=== PATIENT | male | born 1970 | race Caucasian/White ===

== ENCOUNTER 2018-07-12 13:46 | Outpatient (REF) | payer MEDICARE, MEDICAID, SELFPAY ==
[2018-07-12 21:58] LABS: HCT 42.3 % (40.0-50.0); HGB 14.2 g/dL (13.5-17.5); Mean Corp. HGB Concentration 33.6 g/dL (32.0-36.0); Mean Corpuscular Hemoglobin 30.4 pg (27.0-33.0); Mean Corpuscular Volume 90.6 fL (80-95); Platelet Count 352 x1000/uL (130-400); RBC 4.67 m/cumm (4.50-6.00); RBC Distribution Width 12.4 % (11.8-14.1); White Blood Cell Count 7.75 k/cumm (4.4-10.8)
[2018-07-12 22:21] LABS: ALT 29 U/L (12-78); AST 22 U/L (15-37); Albumin 3.8 g/dL (3.4-5.0); Alkaline Phosphatase 75 U/L (46-116); BUN 18 mg/dL (7-18); Bilirubin, Total 0.5 mg/dL (0.2-1.0); CREATININE 1.38 mg/dL (0.70-1.30); Calcium 9.9 mg/dL (8.5-10.1); Chloride 104 mmol/L (98-107); Estimated GFR 54.54 (mL/min/1.73m2); Glucose 121 mg/dL (70-100); Potassium 4.1 mmol/L (3.5-5.1); Sodium 140 mmol/L (136-145); Total Protein 7.4 g/dL (6.4-8.2)
== END 2018-07-12 14:06 ==
LOC: NCHCN 13:46
PROVIDERS: PCP Nurse Practitioner Family; Visit Provider Specialist/Technologist Athletic Trainer
DX: E03.9 Hypothyroidism, unspecified (principal); Z79.899 Other long term (current) drug therapy
CPT/HCPCS: 80053; 85027; 84443

== ENCOUNTER 2019-06-10 10:54 | Outpatient (CLI) | payer MEDICARE, MEDICAID, SELFPAY ==
[2019-06-10 12:13] LABS: Lithium 0.56 mmol/L (0.60-1.20)
[2019-06-10 13:00] LABS: Anion Gap 8.1 mmol/L (3-11); BUN 23 mg/dL (7-18); CO2 26.9 mmol/L (21.0-32.0); CREATININE 1.49 mg/dL (0.70-1.30); Calcium 9.8 mg/dL (8.5-10.1); Chloride 104 mmol/L (98-107); Estimated GFR 49.72 (mL/min/1.73m2); Glucose 106 mg/dL (70-100); Potassium 4.2 mmol/L (3.5-5.1); Sodium 139 mmol/L (136-145); TSH 0.58 uIU/mL (0.36-3.74)
== END 2019-06-10 11:14 ==
PROVIDERS: PCP Specialist/Technologist Athletic Trainer
DX: F71 Moderate intellectual disabilities (principal); Z51.81 Encounter for therapeutic drug level monitoring; Z79.899 Other long term (current) drug therapy
CPT/HCPCS: 36415; 80048; 80178; 84443

== ENCOUNTER 2019-07-15 09:33 | Outpatient (REF) | payer MEDICARE, MEDICAID, SELFPAY ==
[2019-07-15 19:18] LABS: HCT 41.5 % (40.0-50.0); Mean Corp. HGB Concentration 33.7 g/dL (32.0-36.0); Mean Corpuscular Hemoglobin 31.1 pg (27.0-33.0); Mean Corpuscular Volume 92.2 fL (80-95); Mean Platelet Volume 9.5 fL (8.0-11.0); Platelet Count 378 x1000/uL (130-400); RBC Distribution Width 12.4 % (11.8-14.1); White Blood Cell Count 7.47 k/cumm (4.4-10.8)
== END 2019-07-15 09:53 ==
LOC: NCHCN 09:33
PROVIDERS: PCP Specialist/Technologist Athletic Trainer; Visit Provider Specialist/Technologist Athletic Trainer
DX: K62.5 Hemorrhage of anus and rectum (principal)
CPT/HCPCS: 85027

== ENCOUNTER 2020-10-04 14:47 | Outpatient (REF) | payer MEDICARE, MEDICAID, SELFPAY ==
[2020-10-04 16:13] LABS: HCT 43.8 % (40.0-50.0); HGB 14.6 g/dL (13.5-17.5); MCH 30.4 pg (27.0-33.0); MCHC 33.3 % (32.0-36.0); MCV 91.1 fL (80-95); MPV 10.3 fL (8.0-11.0); Platelet Count 321 10^3/uL (130-400); RBC 4.81 10^6/uL (4.36-5.78); RDW 12.3 % (11.8-14.1); RDW-SD 41.1 fL; WBC 7.09 10^3/uL (4.4-10.8)
[2020-10-04 16:38] LABS: Lithium 0.6 mmol/l (0.6-1.2)
[2020-10-04 16:44] LABS: ALT 31 U/L (16-63); AST 20 U/L (15-37); Albumin 3.7 g/dL (3.4-5.0); Alkaline Phosphatase 86 U/L (46-116); Anion Gap 9.9 mmol/L (3-11); BUN 14 mg/dL (7-18); Bilirubin, Total 0.3 mg/dL (0.2-1.0); CO2 26.1 mmol/L (21.0-32.0); CREATININE 1.5 mg/dL (0.70-1.30); Calcium 9.6 mg/dL (8.5-10.1); Calculated LDL 139 mg/dL (<100); Chloride 103 mmol/L (98-107); Cholesterol 210 mg/dL (<200); Estimated GFR 49.15 (mL/min/1.73m2); Glucose 93 mg/dL (74-106); HDL Cholesterol 55 mg/dL (40-60); Potassium 4.1 mmol/L (3.5-5.1); Sodium 139 mmol/L (136-145); TSH 0.15 uIU/mL (0.36-3.74); Total Protein 7.1 g/dL (6.4-8.2); Triglyceride 80 mg/dL (<150)
== END 2020-10-04 14:48 | disposition home or self-care (01) ==
LOC: NCHCN 14:47
PROVIDERS: PCP Nurse Practitioner Family; Visit Provider Nurse Practitioner Family
DX: E03.9 Hypothyroidism, unspecified (principal); D72.829 Elevated white blood cell count, unspecified; Z51.81 Encounter for therapeutic drug level monitoring; Z79.899 Other long term (current) drug therapy
CPT/HCPCS: 80053; 80061; 85027; 80178; 84443

== ENCOUNTER 2021-10-10 19:07 | Outpatient (REF) | payer MEDICARE, MEDICAID, SELFPAY ==
[2021-10-10 21:21] LABS: Lithium 0.6 mmol/l (0.6-1.2)
[2021-10-10 21:36] LABS: Anion Gap 10.6 mmol/L (3-11); BUN 22 mg/dL (7-18); CO2 26.4 mmol/L (21.0-32.0); CREATININE 1.7 mg/dL (0.70-1.30); Chloride 100 mmol/L (98-107); Estimated GFR 42.37 (mL/min/1.73m2); Glucose 114 mg/dL (74-106); Potassium 4.1 mmol/L (3.5-5.1); Sodium 137 mmol/L (136-145); TSH 1.85 uIU/mL (0.36-3.74)
== END 2021-10-10 19:08 | disposition home or self-care (01) ==
LOC: NCHCN 19:07
PROVIDERS: PCP Nurse Practitioner Family; Visit Provider Nurse Practitioner Family
DX: E03.9 Hypothyroidism, unspecified (principal)
CPT/HCPCS: 80048; 80178; 84443

== ENCOUNTER 2021-11-04 13:31 | Outpatient (REF) | payer MEDICARE, MEDICAID, SELFPAY ==
[2021-11-04 21:06] LABS: Bilirubin Negative (Negative); Blood Negative (Negative); Clarity Clear (Clear); Glucose Negative (Negative); Ketones Negative (Negative); Leukocyte Esterase Negative (Negative); Nitrite Negative (Negative); Specific Gravity 1.015 (1.005-1.025); Urobilinogen 0.2 EU/dL (Up TO 0.2)
[2021-11-04 21:14] LABS: COMMENT (LAB VIEW ONLY) 45.25 mg/dL; Microalb ug/mg Crea 10.2 ug/mg Cr
== END 2021-11-04 13:32 | disposition home or self-care (01) ==
LOC: NCHCN 13:31
PROVIDERS: PCP Nurse Practitioner Family; Visit Provider Nurse Practitioner Family
DX: N39.8 Other specified disorders of urinary system (principal)
CPT/HCPCS: 81003; 82043; 82570

== ENCOUNTER 2022-10-13 17:09 | Outpatient (REF) | payer MEDICARE, MEDICAID, SELFPAY ==
[2022-10-13 19:46] LABS: Anion Gap 8.3 mmol/L (3-11); BUN 18 mg/dL (7-18); CO2 27.7 mmol/L (21.0-32.0); CREATININE 1.8 mg/dL (0.70-1.30); Calcium 9.5 mg/dL (8.5-10.1); Chloride 103 mmol/L (98-107); Estimated GFR 44.18 (mL/min/1.73m2); Glucose 111 mg/dL (74-106); Potassium 3.9 mmol/L (3.5-5.1); Sodium 139 mmol/L (136-145)
== END 2022-10-13 17:10 | disposition home or self-care (01) ==
LOC: NCHCN 17:09
PROVIDERS: PCP Nurse Practitioner Family; Visit Provider Nurse Practitioner Family
DX: E03.9 Hypothyroidism, unspecified (principal); R79.89 Other specified abnormal findings of blood chemistry
CPT/HCPCS: 80048; 84443

== ENCOUNTER 2023-10-15 12:56 | Outpatient (REF) | payer MEDICARE, MEDICAID, SELFPAY ==
[2023-10-15 19:29] LABS: Abs Immature Grans 0.02 10^3/uL (0.0-0.06); Absolute Basophil Count 0.03 10^3/uL (0.0-0.2); Absolute Eosinophil Count 0.27 10^3/uL (0.0-0.7); Absolute Lymphocyte Count 1.39 10^3/uL (1.2-3.4); Absolute Monocyte Count 0.75 10^3/uL (0.1-0.8); Absolute Neutrophil Count 5.19 10^3/uL (1.2-6.7); Basophils % 0.4; Eosinophils % 3.5; Immature Grans % 0.3; Lymphocytes % 18.2; MCH 28.7 pg (27.0-33.0); MCHC 32.5 % (32.0-36.0); MCV 88 fL (80-95); MPV 9.6 fL (8.0-11.0); Monocytes % 9.8; Neutrophils % 67.8; Platelet Count 422 10^3/uL (130-400); RBC 4.53 10^6/uL (4.36-5.78); RDW 13.5 % (11.8-14.1); RDW-SD 43.8 fL; WBC 7.65 10^3/uL (4.4-10.8)
[2023-10-15 19:45] LABS: Lithium 0.6 mmol/l (0.6-1.2)
[2023-10-15 19:55] LABS: Hemoglobin A1C 5.4 % (<5.7)
[2023-10-15 20:18] LABS: Vitamin D 25 Total 29.1 ng/mL (30-100)
[2023-10-15 20:28] LABS: ALT 27 U/L (16-63); AST 21 U/L (15-37); Albumin 3.6 g/dL (3.4-5.0); Alkaline Phosphatase 90 U/L (46-116); Anion Gap 11.4 mmol/L (3-11); BUN 24 mg/dL (7-18); Bilirubin, Total 0.3 mg/dL (0.2-1.0); CO2 24.6 mmol/L (21.0-32.0); CREATININE 1.8 mg/dL (0.70-1.30); Calcium 9.9 mg/dL (8.5-10.1); Calculated LDL 187 mg/dL (<100); Chloride 105 mmol/L (98-107); Cholesterol 266 mg/dL (<200); Glucose 81 mg/dL (74-106); HDL Cholesterol 64 mg/dL (40-60); Potassium 4.6 mmol/L (3.5-5.1); Sodium 141 mmol/L (136-145); TSH 3.55 uIU/Ml (0.36-3.74); Total Protein 7.9 g/dL (6.4-8.2); Triglyceride 76 mg/dL (<150)
== END 2023-10-15 12:57 | disposition home or self-care (01) ==
LOC: NCHCN 12:56
PROVIDERS: PCP Nurse Practitioner Family; Visit Provider Nurse Practitioner Family
DX: E03.9 Hypothyroidism, unspecified (principal); Z00.00 Encounter for general adult medical examination without abnormal findings
CPT/HCPCS: 80053; 80061; 82306; 80178; 83036; 84443; 85025

== ENCOUNTER 2024-03-15 02:06 | Outpatient (CLI) | payer MEDICARE, MEDICAID, SELFPAY ==
[2024-03-15 19:12] LABS: PSA, Diagnostic 0.6 ng/mL (<=3.5)
== END 2024-03-15 02:07 | disposition home or self-care (01) ==
LOC: LBO 02:06
PROVIDERS: PCP Nurse Practitioner Family; Visit Provider Urology
DX: N40.1 Benign prostatic hyperplasia with lower urinary tract symptoms (principal)
CPT/HCPCS: 36415; 84153

== ENCOUNTER → 2024-09-01 10:02 | Outpatient (BNVA) | payer MEDICARE, MEDICAID, SELFPAY | PROVIDERS: PCP Nurse Practitioner Family; Referring Provider Nurse Practitioner Family; Visit Provider Physical Therapy Assistant | DX: Z12.11 Encounter for screening for malignant neoplasm of colon (principal) ==

== ENCOUNTER 2024-09-12 08:34 | Day surgery (SDC) | payer MEDICARE, MEDICAID, SELFPAY ==
[2024-09-12] MEDS: Lactated Ringers 1,000 ML 80 ML IV (09:14)
[2024-09-12 09:18] VITALS: BP 124/84; PULSE 76; RESP 16; TEMP 36.3; O2SAT 95
--- NOTE | 2024-09-12 09:30 | ANES.PREOP_ITS ---
General Info Date of Service Date Performed: 09/12/24 Height: 5 ft 11 in Weight: 97 kg Body Mass Index (BMI): 29.8 Surgical Procedure: Operation Date: 09/12/24 10:05 Proposed Procedure Side Surgeon p Colonoscopy Uche Ambriz MD Actual Procedure Side Surgeon p Colonoscopy Not Applicable Uche Ambriz MD Pre-Op Diagnosis Post-Op Diagnosis screening colonoscopy Meds Allergies and Home Medications Allergies Allergy/AdvReac Type Severity Reaction Status Date / Time Penicillins Allergy unknown Verified 09/12/24 09:15 Home Medication ?Medication ?Instructions ?Recorded lithium carbonate 600 mg capsule 600 mg PO HS 10/08/13 tamsulosin 0.4 mg capsule 0.4 mg PO DAILY 10/08/13 acetaminophen 325 mg capsule 325 mg PO Q6H PRN 10/29/23 (Tylenol) camphor-eucalyptus oil-menthol 4.8 1 applic topical TID PRN 10/29/23 %-1.2 %-2.6 % topical ointment (Vicks Vaporub) cetirizine 10 mg tablet 10 mg PO DAILY PRN 10/29/23 cholecalciferol (vitamin D3) 25 25 mcg PO DAILY 10/29/23 mcg (1,000 unit) tablet fluoride toothpaste applic dental 10/29/23 fluoxetine 40 mg capsule 80 mg PO DAILY 10/29/23 levothyroxine 100 mcg tablet 100 mcg PO DAILY 10/29/23 multivitamin with iron (Daily 1 tab PO DAILY 10/29/23 Vites/Iron tablet) risperidone 0.5 mg tablet 0.5 mg PO .noon 10/29/23 risperidone 1 mg tablet 1 mg PO TID 10/29/23 vibegron 75 mg tablet (Gemtesa) 75 mg PO DAILY 10/29/23 bisacodyl 5 mg tablet,delayed 5 mg PO ONCE #4 tabs 09/01/24 release (Dulcolax (bisacodyl)) clonazepam 0.5 mg tablet 0.5 mg PO DAILY 09/01/24 polyethylene glycol 3350 17 17 g PO ONCE #238 grams 09/01/24 gram/dose oral powder Current Visit Medications: Current Medications Generic Name Dose Route Start Last Admin Trade Name Freq PRN Reason Stop Dose Admin Ringer's Solution 1,000 mls @ 80 mls/hr 09/12/24 06:00 09/12/24 09:14 IV 09/12/24 23:59 80 mls/hr INFUSION TONY Administration IV Miscellaneous Supplies 1 each 09/12/24 06:00 Iv Access IV 09/12/24 23:59 DIRECTED TONY Sodium Chloride 0 ml 09/12/24 06:00 Normal Saline Flush 10 Ml Syr IV 09/12/24 23:59 PRN PRN Sodium Chloride 0 ml 09/12/24 06:00 Normal Saline 10 Ml Vial IJ 09/12/24 23:59 DIRECTED PRN Sterile Water 0 ml 09/12/24 06:00 Water,Injection,Sterile 10 Ml Vial IJ 09/12/24 23:59 DIRECTED PRN PFSH Active Problems Active Problems: Problem Status Onset Code Chronic kidney disease Chronic N18.9 Thoracic spine instability Acute M53.2X4 Xerostomia Acute K11.7 Urinary incontinence Acute R32 Bipolar disorder Acute F31.9 Hypothyroidism Chronic E03.9 Autism Acute F84.0 Medical History Medical History Urinary retention Autistic disorder NON-VERBAL. Per detention states when he doesn't want to do something he gets aggressive Kidney stone Leukocytosis Tobacco Smoking/Tobacco Use Status: Never Alcohol Alcohol Intake: never Substance Use Substance use: Never Substance use type: does not use Vital Signs and Lab Results Vital Signs Most Recent Vital Signs in EMR: Most Recent Vital Signs Temp Pulse Resp BP Pulse Ox 36.3 C L 76 16 124/84 95 09/12/24 09:18 09/12/24 09:18 09/12/24 09:18 09/12/24 09:18 09/12/24 09:18 Lab Results Blood Type / Crossmatch: No Data to Display Complete Blood Count: No Data to Display Complete Metabolic Panel: No Data to Display Liver Function Panel: No Data to Display Coagulation Panel: No Data to Display Cardiac Panel: No Data to Display Arterial Blood Gas: No Data to Display Venous Blood Gas: No Data to Display Pancreas Panel: No Data to Display Thyroid Panel: No Data to Display Infectious Disease: No Data to Display Blood Cultures: No Data to Display Toxicology Panel: No Data to Display Anesthesia Assessment and Plan Anesthesia History Personal History: No History of Anesthesia Complications Family History: No Family History of Anesthesia Complications Exercise Tolerance Exercise Tolerance: Metabolic Equivalents>4 Pertinent Negatives Pertinent Negatives: No Symptoms of GERD, No Major Cardiovascular Symptoms or Complaints, No Major Pulmonary Symptoms or Complaints and No History of CVA/TIA Cardiac & Pulmonary Exam Cardiac Exam: Normal S1/S2 Heart Sounds Pulmonary Exam: Clear Bilateral Breath Sounds Implantable Cardiac Device Does patient have a Pacemaker or an ICD?: No Airway Exam Known Difficult Airway: No Mallampati Class: Unable to Assess Mouth Opening: Unable to Assess Thyromental Distance: Greater than 3 cm Neck Range of Motion: Unable to Assess Neck Circumference: Normal Teeth Condition: Normal Dentition and Generalized Poor Dentition ASA Classification ASA Score: ASA 2 Emergency Case?: No NPO Status NPO Status: NPO Clears >2 hours, Solids >8 hours Anesthesia Plan Resuscitation Status: Full Code Anesthesia Technique: General Anesthesia Airway Planned: Natural Airway Monitors Used: Standard Monitors Preoperative Comments:: Patient non-verbal and can be explosive has been appropriate today. Discussed care with guardian/brother Nile. Plan risks benefits discussed, proceeding with General natural airway
[2024-09-12 09:32] VITALS: BMI 29.8
--- NOTE | 2024-09-12 10:03 | BOWEL_PTH ---
PATIENT: Brandon De Leon LOC: [facility] U#:[id number] AGE/SX: 54/M ROOM: RE09/12/[address]: Uche Ambriz : 1970 BED: DIS: 09/12/2024 SPEC #: [id number] RECD: 09/12/24 12:33 STATUS: CHARLES REHaleigh #: [id number] SONAM: 09/12/24 10:[address]: Uche Ambriz DEPT: Surgical Specimen RECD BY: Kathy Yoon ENTERED: 09/12/24 12:34 SP TYPE: Bowel OTHR DR: Ivette Grier Tissues: 1 - BIOPSY BOWEL Procedures: GROSS AND MICRO LEVEL 4 Comments: [id number]
[2024-09-12 10:10] VITALS: BP 74/44; PULSE 61; RESP 12; TEMP 36.2; O2SAT 94
[2024-09-12 10:18] VITALS: BP 75/50; PULSE 57; RESP 12; TEMP 36.2; O2SAT 95
--- NOTE | 2024-09-12 10:19 | W.COLOREPORT ---
Date of service: 09/12/24 Time of Service: 10:19 Colonoscopy Report Procedure Description: PROCEDURES PERFORMED: 1. Colonoscopy with hot snare polypectomy PREOPERATIVE DIAGNOSIS: Screening colonoscopy, family history of polyps POSTOPERATIVE DIAGNOSIS: Colon polyps, grade 2 internal hemorrhoids SURGEON: Ty Ambriz MD INDICATION for procedure: The patient is a 54-year-old man with some degree of cognitive/mental handicap - presumably has no complaints or bowel habit changes. His brother has a history of adenomatous polyps being removed. FINDINGS: The patient has an extremely redundant long colon. Somewhere along the transverse colon a 15-18 mm pedunculated polyp was removed with hot snare technique. No obvious diverticular disease anywhere. No other colon polyps. Grade 2 internal hemorrhoid disease present at all 3 columns. SURVEILLANCE interval/FOLLOW-UP: 3-year follow-up. SPECIMENS: yes EBL: Minimal COMPLICATIONS: None QUALITY of prep: Excellent Procedure in detail: The patient gave written consent and was in agreement with the indications, the potential risks as well as the benefits of the procedure. They were taken to the endoscopy suite and laid in the left lateral decubitus position. A timeout was performed and anesthesia was administered which was tolerated well. I started the procedure. Digital rectal and visual examination was performed and grossly within normal limits. A well-lubricated flexible colonoscope was then introduced and passed without any notable difficulty all the way to the cecum identified by the ileocecal valve and the appendiceal orifice. The scope was then slowly withdrawn with the above-noted findings. The patient tolerated the procedure well and was taken to the PACU in hemodynamically stable condition.
--- NOTE | 2024-09-12 10:23 | W.PM.DSUDISC ---
Date of service: 09/12/24 Discharge Plan Disposition Patient Disposition: Home Condition: Good Discharge Details Attending Provider: Uche Ambriz Primary Care Provider: Ivette Grier Home Meds and New Rx's Prescriptions: No Action bisacodyl [Dulcolax (bisacodyl)] 5 mg tablet,delayed release (DR/EC) 5 mg PO ONCE Qty: 4 0RF Rx Instructions: Take per colonoscopy instructions provided by ordering providers office polyethylene glycol 3350 17 gram/dose powder 17 g PO ONCE Qty: 238 0RF Rx Instructions: Take per colonoscopy instructions provided by ordering providers office clonazepam 0.5 mg tablet 0.5 mg PO DAILY Rx Instructions: 1/2 tablet every am and 1 tablet at noon fluoxetine 40 mg capsule 80 mg PO DAILY cetirizine 10 mg tablet 10 mg PO DAILY PRN levothyroxine 100 mcg tablet 100 mcg PO DAILY risperidone 1 mg tablet 1 mg PO TID risperidone 0.5 mg tablet 0.5 mg PO .noon cholecalciferol (vitamin D3) 25 mcg (1,000 unit) tablet 25 mcg PO DAILY fluoride toothpaste Toothpaste dental Vicks Vaporub 4.8-1.2-2.6 % ointment 1 applic topical TID PRN acetaminophen [Tylenol] 325 mg capsule 325 mg PO Q6H PRN Gemtesa 75 mg tablet 75 mg PO DAILY multivitamin with iron [Daily Vites/Iron] Tablet 1 tab PO DAILY tamsulosin 0.4 MG capsule 0.4 mg PO DAILY lithium carbonate 600 MG capsule 600 mg PO HS Discharge Instructions Additional Instructions: FINDINGS: A large polyp was found and removed from his colon. Nothing to worry about. It will get tested. This is why we do the colonoscopies. He will need to have another colonoscopy in 3 years. Activity:: Activity as Tolerated Diet:: As Tolerated Discharge Orders Discharge Orders: Discharge Order (Routine); Ordered 09/12/24 Ordered By: Uche Ambriz
[2024-09-12 10:25] VITALS: BP 82/57; PULSE 60; RESP 13; O2SAT 98
--- NOTE | 2024-09-12 10:29 | W.ANESPOSTOP ---
Postoperative Evaluation Date, Time and Location Date Performed: 09/12/24 Time Performed: 10:30 Patient Location: Day Surgery Unit Vital Signs Most Recent Imported Vital Signs: Most Recent Vital Signs Temp Pulse Resp BP Pulse Ox 36.2 C L 60 13 82/57 L 98 09/12/24 10:18 09/12/24 10:25 09/12/24 10:25 09/12/24 10:09/12/24 10:25 Pain Score Most Recent Pain Score: Most Recent Pain Score Pain Level 0 09/12/24 09:18 Assessment Mental Status: Awake (Alert & Oriented to Patient Baseline) Airway and Respiratory Function: Patent airway with normal (patient baseline) respiratory exam Cardiovascular Function: Hemodynamically Stable Hydration Status: Adequately Hydrated Nausea & Vomiting: No Nausea or Vomiting Pain: Pt. Denies Any Pain Peripheral Nerve Block: Patient did not receive a nerve block
[2024-09-12 10:44] VITALS: BP 110/76; PULSE 67; RESP 15; TEMP 36.5; O2SAT 93
== END 2024-09-12 08:35 | disposition home or self-care (01) ==
PROVIDERS: PCP Nurse Practitioner Family; Visit Provider Student in an Organized Health Care Education/Training Program
PROC: 0DJD8ZZ Inspection of Lower Intestinal Tract, Via Natural or Artificial Opening Endoscopic (ICD-10-PCS; CPT 45378; principal; 2024-09-12 10:00)
DX: Z12.11 Encounter for screening for malignant neoplasm of colon (principal); D12.3 Benign neoplasm of transverse colon; K64.1 Second degree hemorrhoids
CPT/HCPCS: 45385; 88305; J2250; J2704

== ENCOUNTER 2024-11-01 02:21 | Outpatient (CLI) | payer MEDICARE, MEDICAID, SELFPAY ==
[2024-11-01 10:29] LABS: ALT 22 U/L (16-63); AST 19 U/L (15-37); Albumin 3.6 g/dL (3.4-5.0); Alkaline Phosphatase 87 U/L (46-116); Anion Gap 9.9 mmol/L (3-11); BUN 22 mg/dL (7-18); Bilirubin, Total 0.3 mg/dL (0.2-1.0); CO2 28.1 mmol/L (21.0-32.0); CREATININE 1.9 mg/dL (0.70-1.30); Calculated LDL 163 mg/dL (<100); Chloride 103 mmol/L (98-107); Cholesterol 248 mg/dL (<200); Estimated GFR 40.89 (mL/min/1.73m2); Glucose 130 mg/dL (74-106); HDL Cholesterol 65 mg/dL (>or=40); Potassium 4.3 mmol/L (3.5-5.1); Sodium 141 mmol/L (136-145); TSH 3.02 uIU/mL (0.36-3.74); Total Protein 7.7 g/dL (6.4-8.2); Triglyceride 100 mg/dL (<150)
[2024-11-01 10:47] LABS: Lithium 0.7 mmol/L (0.6-1.2)
[2024-11-01 14:26] LABS: Iron 182 ug/dL (65-175); Total Iron Binding Capacity 352 ug/dL (250-450); Transferrin Sat 52 % (20-55)
[2024-11-01 14:50] LABS: Ferritin 46 ng/mL (26-388); Vitamin D 25 Total 41 ng/mL (30-100)
[2024-11-02 09:57] LABS: Parathyroid Hormone,Intact 43.2 pg/mL (19.0-88.0)
== END 2024-11-01 02:22 | disposition home or self-care (01) ==
LOC: LBO 02:21
PROVIDERS: PCP Nurse Practitioner Family; Visit Provider Nurse Practitioner Family
DX: E03.9 Hypothyroidism, unspecified (principal); N18.9 Chronic kidney disease, unspecified
CPT/HCPCS: 36415; 80053; 80061; 82306; 80178; 82728; 83540; 83550; 83970; 84443

== ENCOUNTER 2025-01-18 01:39 | Outpatient (CLI) | payer MEDICARE, MEDICAID, SELFPAY ==
[2025-01-18 17:36] LABS: BUN 22 mg/dL (7-18); CREATININE 1.9 mg/dL (0.70-1.30); Calcium 9.9 mg/dL (8.5-10.1); Chloride 101 mmol/L (98-107); Estimated GFR 40.64 (mL/min/1.73m2); Glucose 121 mg/dL (74-106); Lithium 0.7 mmol/L (0.6-1.2); Sodium 136 mmol/L (136-145)
== END 2025-01-18 01:40 | disposition home or self-care (01) ==
PROVIDERS: PCP Nurse Practitioner Family; Visit Provider Internal Medicine
DX: N18.31 Chronic kidney disease, stage 3a (principal); T56.891A Toxic effect of other metals, accidental (unintentional), initial encounter; N14.19 Nephropathy induced by other drugs, medicaments and biological substances
CPT/HCPCS: 36415; 80048; 80178

== ENCOUNTER 2025-03-29 13:02 | Outpatient (CLI) | payer MEDICARE, MEDICAID, SELFPAY ==
[2025-03-29 22:35] LABS: PSA, Diagnostic 0.5 ng/mL (<=3.5)
== END 2025-03-29 13:03 | disposition home or self-care (01) ==
LOC: LBO 13:02
PROVIDERS: PCP Nurse Practitioner Family; Visit Provider Urology
DX: R39.15 Urgency of urination (principal)
CPT/HCPCS: 36415; 84153